=== PATIENT | male | born 1960 | race Caucasian/White ===

== ENCOUNTER 2022-06-11 06:25 | Emergency (ER) | payer OTHER | END 2022-06-11 10:15 | disposition home or self-care (01) | LOC: CC.ED 06:25 | DX: Z77.098 Contact with and (suspected) exposure to other hazardous, chiefly nonmedicinal, chemicals (principal) | CPT/HCPCS: 36415; 80053; 83605; 83735; 84484; 85025; 93005; 99283 ==